=== PATIENT | female | born 1985 | race African-American/Black ===

== ENCOUNTER 2017-05-02 16:23 | Emergency (ER) | payer OTHER ==
[~2017-05-02] VITALS: Ht 160 cm; Wt 68.1 kg
[2017-05-02] MEDS ORDERED: MOTRIN800 MG PO (18:26)
[2017-05-02] MEDS ORDERED: ULTRAM50 MG PO (18:26)
[2017-05-02 19:01] VITALS: BP 00/00
== END 2017-05-02 19:02 | disposition home or self-care (01) ==
LOC: EME 16:23
DX: S93.401A Sprain of unspecified ligament of right ankle, initial encounter (principal); X50.1XXA Overexertion from prolonged static or awkward postures, initial encounter
CPT/HCPCS: 73610; 73630; 99281; 99284